=== PATIENT | male | born 1985 | race Caucasian/White ===

== ENCOUNTER 2023-03-28 07:20 | Inpatient (IN) | payer MEDICAID ==
[~2023-03-28] VITALS: Ht 185.4 cm; Wt 79.3 kg
[~2023-03-28 07:20] MED LIST: BUPR300T6 PO; CITA20TA28 PO; CLON-527 PO
[2023-03-28 08:25] LABS: BASOPHILS % (AUTO) 0.3 % (0-1); EOSINOPHILS # (AUTO) 0.1 X10'3 (0-0.9); EOSINOPHILS % (AUTO) 0.8 % (0-6); HEMATOCRIT 47.1 % (42.0-52.0); HEMOGLOBIN 16.3 g/dl (14.0-17.9); LYMPHOCYTES # (AUTO) 2.6 X10'3 (1.1-4.8); LYMPHOCYTES % (AUTO) 25.4 % (21-51); MEAN CORPUSCULAR HEMOGLOBIN 31.7 PG (27.0-31.0); MEAN CORPUSCULAR HGB CONC 34.7 g/dL (33.0-36.5); MEAN CORPUSCULAR VOLUME 91.3 FL (78-98); MEAN PLATELET VOLUME 7.1 FL (7.4-10.4); MONOCYTES # (AUTO) 0.9 X10'3 (0-0.9); MONOCYTES % (AUTO) 8.7 % (2-12); NEUTROPHILS # (AUTO) 6.6 X10'3 (1.8-7.7); NEUTROPHILS % (AUTO) 64.8 % (42-75); PLATELET COUNT 302 X10'3 (140-440); RED BLOOD COUNT 5.16 X10'6 (4.70-6.10); RED CELL DISTRIBUTION WIDTH 15.6 % (11.5-14.5); WHITE BLOOD COUNT 10.2 X10'3 (4.5-11.0)
[2023-03-28 08:29] LABS: ANION GAP 11 (8-16); BILIRUBIN,TOTAL 0.7 MG/DL (0.1-1.0); BLOOD UREA NITROGEN 16 MG/DL (7-18); CALCIUM 9.9 MG/DL (8.5-10.1); CHLORIDE 102 MMOL/L (99-107); CREATININE 0.94 MG/DL (0.60-1.10); GLUCOSE 110 MG/DL (70-104); POTASSIUM 4.1 MMOL/L (3.5-5.1); SODIUM 135 MMOL/L (135-145); TOTAL CARBON DIOXIDE 22.2 MMOL/L (24-32); eCRCL 124 ML/MIN; eGFR > 90 ML/MIN
[2023-03-28 08:30] LABS: ALANINE AMINOTRANSFERASE 76 U/L (12-78); ALBUMIN 4.4 G/DL (3.4-5.0); ALBUMIN/GLOBULIN RATIO 1.1 (1.1-1.5); ALKALINE PHOSPHATASE 84 IU/L (46-116); ASPARTATE AMINO TRANSFERASE 69 U/L (10-37); TOTAL PROTEIN 8.3 G/DL (6.4-8.2)
[2023-03-28 08:38] LABS: ETHANOL 99 MG/DL (<10); THYROID STIMULATING HORMONE 3.13 ulU/ml (0.34-4.50)
[2023-03-28 08:42] LABS: BILIRUBIN,URINE NEGATIVE (Neg); CLARITY,URINE CLEAR (Clear); COLOR,URINE YELLOW (Yellow); GLUCOSE, URINE NEGATIVE (Neg); KETONES,URINE NEGATIVE (Neg); LEUKOCYTE ESTERASE ,URINE NEGATIVE (Neg); NITRITES, URINE NEGATIVE (Neg); OCCULT BLOOD,URINE NEGATIVE (Neg); PROTEIN,URINE TRACE mg/dl (Neg); UROBILINOGEN,URINE 0.2 E.U/dL (0.2-1.0)
[2023-03-28 08:47] LABS: MUCUS STRANDS FEW /LPF (Neg); UA COLLECTION TYPE CLN CATCH MIDSTREAM
[2023-03-28 08:48] LABS: BACTERIA,URINE NONE SEEN /HPF (Neg); RBC,URINE 0-2 /HPF (0-2); SQUAMOUS EPITHELIAL CELL,UR FEW /LPF (FEW); WBC,URINE 0-4 /HPF (0-4)
[2023-03-28 09:29] LABS: URINE AMPHETAMINE SCREEN POSITIVE (Neg); URINE BARBITUATE SCREEN NEGATIVE (Neg); URINE BENZODIAZEPINES SCREEN NEGATIVE (Neg); URINE CANNABINOID SCREEN NEGATIVE (Neg); URINE COCAINE SCREEN NEGATIVE (Neg); URINE METHADONE SCREEN NEGATIVE (Neg); URINE OPIATE SCREEN NEGATIVE (Neg); URINE PHENCYCLIDINE SCREEN NEGATIVE (Neg)
--- NOTE | 2023-03-28 10:15 | NUR ---
Pt brought to [facility] from main ER and placed in bed 22. Pt is anxious and concerned about cosequenses of relapse. Pt placed in green scrubs.
--- NOTE | 2023-03-28 12:51 | NUR ---
[facility] PACKET FAXED
--- NOTE | 2023-03-28 13:10 | NUR ---
Pt is concerned if he will be able to get back on his meds. He is anxious and continues to report intrmitent SI. Overall pleasant and cooperative with questions and he desires tx at this time. Pt ate lunch well.
[2023-03-28] MEDS ORDERED: AMLO10TA13 PO (14:41)
[2023-03-28] MEDS ORDERED: PANT40TA54 PO (14:41)
[2023-03-28] MEDS ORDERED: ASEN5TAB7 PO (14:41)
[2023-03-28] MEDS ORDERED: CLON0.2T PO (14:41)
[2023-03-28] MEDS ORDERED: NICO-687 TD (14:41)
[2023-03-28] MEDS ORDERED: TRAZ-251 PO (14:41)
[2023-03-28] MEDS ORDERED: FLO0.4C PO (14:41)
[2023-03-28] MEDS ORDERED: CLON1TAB12 PO (14:41)
--- NOTE | 2023-03-28 15:41 | NUR ---
Pt's meds reviewed with him and external med rec. reviewed. Med rec. complerted and signed by MD and faxed to pharmacy. Pt was seen by [facility] and placed on 5150 hold for DTS.
[2023-03-28] MEDS: clonazePAM 1mg tablet PO PRN (16:46)
[2023-03-28] MEDS ORDERED: cloNIDine 0.1 mg tablet PO ONE (18:15)
[2023-03-28] MEDS ORDERED: amLODIPine 5mg tablet PO ONE (18:15)
[2023-03-28] MEDS ORDERED: mag hydrox/Alum hydrox/simeth 30ml oral suspension PO ONE (18:35)
[2023-03-28] MEDS ORDERED: LORazepam 1 MG tablet PO ONE (18:40)
--- NOTE | 2023-03-28 19:12 | NUR ---
The patient's BP is 178/111 and his HR is 106 and he has not had his BP medications yet today and pharmacy was made aware. The patient is very diaphoretic and having nausea with acid burning in his upper abd. Dr. Dorman made aware and orders received. He stated his anxiety is very high. He reports it was 7/10. He reports visual disturbances of seeing fog. He denies voices. He complains of upper abd pain 8/10 that was unreleaved by the Maalox. He is pale and diaphoretic.
--- NOTE | 2023-03-28 19:23 | NUR ---
Dr. Dorman made aware patient complaint of mid upper abd pain, diaphoresis and EKG ordered.
--- NOTE | 2023-03-28 20:07 | NUR ---
Dr. Dorman is at the bedside examining the patient
[2023-03-28] MEDS ORDERED: chlordiazePOXIDE 25mg capsule PO ONE (20:10)
[2023-03-28] MEDS: asenapine 5mg TAB.SUBL SL SCH (20:25)
[2023-03-28] MEDS: cloNIDine 0.1 mg tablet PO SCH (20:25)
[2023-03-28] MEDS: traZODone 50mg tablet PO SCH (20:25)
--- NOTE | 2023-03-28 20:34 | NUR ---
Labs drawn and results pending. crepe sole wire brusher on [facility] made aware of patient medical complaints.
--- NOTE | 2023-03-28 22:16 | NUR ---
The patient is resting on his bed but awake. Pending trandfer to [facility]
[2023-03-29] MEDS ORDERED: acetaminophen 325mg tablet PO PRN ×2
[2023-03-29] MEDS ORDERED: magnesium hydroxide 30ml (MOM) UD suspension PO PRN
[2023-03-29] MEDS ORDERED: mag hydrox/Alum hydrox/simeth 30ml oral suspension PO PRN
[2023-03-29] MEDS ORDERED: loperamide 2mg capsule PO PRN
[2023-03-29] MEDS ORDERED: morphine 2 MG/ML inj. syringe IM ONE ×4 (03:00→05:45)
--- NOTE | 2023-03-29 03:39 | NUR ---
Admit Note: PT arrived to [facility] from [facility] accompanied by security and [facility]. Pt is on 5150 for DTS D/T reporting that he is currently having suicidal thoughts and plans to overdose on street drugs or medication following recent relapse. Addendum: 03/29/23 at 0348 by Gladys Baer RN at 0345 Dr. Dietrich notified pts lipase results of 418. no new orders received. Pt was already given 2mg Morphine IM ordered by hospitalist for acute abdominal pain.
--- NOTE | 2023-03-29 05:55 | NUR ---
First 4mg of Morphine ordered was not administered due to pharmacist putting in new order for 4 mg Morphine
[2023-03-29 07:00] VITALS: RESP 18; O2SAT 100
--- NOTE | 2023-03-29 07:28 | NUR ---
Paged hospitalist per nursing tabulating supervisor and Dr Cloud's instructions. Pt is having severe abd pain and lipase level came back elevated at 418.
--- NOTE | 2023-03-29 07:54 | NUR ---
Obtained order from Dr Gonzales for Clear liquid diet, regular diet D/c'd.
--- NOTE | 2023-03-29 07:55 | NUR ---
Pt's BP is 159/115, his HR is 104. He is c/o of 7/10 abdominal pain.
[2023-03-29 08:00] VITALS: BP 159/115; PULSE 104; RESP 18; TEMP 98.2; O2SAT 100
[2023-03-29] MEDS ORDERED: pantoprazole 40mg Tablet.DR PO SCH (08:00)
--- NOTE | 2023-03-29 08:00 | NUR ---
Resident hospitalist called, she will come and see the patient.
[2023-03-29 08:06] LABS: HEMOGLOBIN A1C 5.4 % (4.5-6.2)
[2023-03-29 08:29] LABS: CHOL/HDL RATIO 8.7 (0.00-4.99); CHOLESTEROL 122 MG/DL (0-200); HDL CHOLESTEROL 14 MG/DL (35-60); LDL CHOLESTEROL 86 MG/DL (50-100); TRIGLYCERIDES 114 MG/DL (20-135)
[2023-03-29] MEDS ORDERED: pantoprazole 40mg IV 80 MG in normal saline 100ml IV soln 100 ML IV SCH (08:30)
[2023-03-29] MEDS: amLODIPine 5mg tablet PO SCH (08:39)
[2023-03-29] MEDS: tamsulosin 0.4mg capsule PO SCH (08:39)
[2023-03-29] MEDS: cloNIDine 0.1 mg tablet PO SCH ×3 (08:39→21:12)
[2023-03-29] MEDS: nicotine 21mg patch - 24 hr TD SCH (08:42)
[2023-03-29] MEDS: normal saline 1000ml 1,000 ML IV SCH ×2 (09:26→22:19)
[2023-03-29] MEDS: asenapine 5mg TAB.SUBL SL SCH ×2 (09:32→21:17)
[2023-03-29] MEDS: pantoprazole 40MG/NS 100ML BAG 100 ML IV SCH (09:32)
--- NOTE | 2023-03-29 10:13 | NUR ---
Resident Cooper came and saw the patient. Received new orders for pt to be NPO except for small sips with meds, NS 75 ml/Hr, Protonix 40 mg IV. IV started left AC. MD instructed to notify her if pt still having severe abd pain after IV Protonix. IV Protonix administered and pt is still c/o nausea and severe 8/10 mid upper abdominal pain as well as right upper back pain.
--- NOTE | 2023-03-29 10:16 | NUR ---
Notified resident MD Osborne that pt is still experiencing nausea and severe mid upper abdominal pain as well as right upper back pain. Order obtained for abdominal CT without contrast.
--- NOTE | 2023-03-29 10:41 | NUR ---
Pt taken via w/c to CT accompanied by CRN and security.
--- NOTE | 2023-03-29 11:00 | NUR ---
Pt back from CT.
[2023-03-29] MEDS ORDERED: haloperidol 5mg tablet PO PRN (12:20)
[2023-03-29] MEDS ORDERED: dextrose 50%-water 50ml dispensing syringe IV PRN (12:20)
[2023-03-29] MEDS ORDERED: haloperidol lactate 5mg/ml inj IM PRN (12:20)
[2023-03-29] MEDS ORDERED: LORazepam 2 mg/ml vial IV PRN (12:20)
[2023-03-29 13:07] VITALS: BP 152/110; PULSE 103; RESP 18; O2SAT 100
--- NOTE | 2023-03-29 13:13 | NUR ---
Pt c/o severe anxiety, scored a 20 on CIWA scale. Administered PRN Ativan 2 mg IV. Addendum: 03/29/23 at 1722 by Perla Gutierrez RN (Lee) Pt NPO and nauseous, so gave IV instead of PO Ativan.
[2023-03-29] MEDS: thiamine 100mg/ml 2ml inj. IV SCH ×2 (13:25→21:20)
--- NOTE | 2023-03-29 13:38 | NUR ---
Second page sent to hospitalist requesting PRN IV pain med. Pt NPO with mod-severe acute pancreatitis, c/o 8/10 upper mid abd pain and right upper back pain.
--- NOTE | 2023-03-29 14:58 | NUR ---
Hospitalist called while this nurse was on lunch in response to page. New order for [place] 5/325 mg PO Q6H PRN pain.
--- NOTE | 2023-03-29 15:10 | NUR ---
Resident [place] called the unit. She states that she will put in orders for morphine and [place] protocol later. Obtained order for Zofran 4 mg IV daily PRN N/V.
[2023-03-29] MEDS: HYDROcodone/acetaminophen 5mg/325mg tablet PO PRN (15:45)
[2023-03-29] MEDS: ondansetron/PF 4mg/2ml inj IV PRN (15:48)
[2023-03-29 17:10] VITALS: BP 157/101; PULSE 104; RESP 18; O2SAT 98
[2023-03-29] MEDS: LORazepam 1 MG tablet PO PRN (17:23)
--- NOTE | 2023-03-29 17:33 | NUR ---
NURSING PROGRESS NOTE: Problem : Pt is on 5150 for DTS D/T reporting that he is currently having suicidal thoughts and plans to overdose on street drugs or medication following recent relapse. Pt was residing at the [facility] until relapse. Pt reports drinking 1 pint of 100 proof alcohol X 3 days. Pt's tox screen was + for methamphetamines. Pt has acute mod-severe pancreatitis. Pt has a Hx of alcohol withdrawal seizures. Interventions : 1:1 assessment, establishment of rapport, therapeutic conversation, active listening, ensured contract for safety, IV started, IV fluids started, CIWA monitoring, pain and nausea management, IV medications for acute pancreatitis and ETOH withdrawal administered, Q15 min safety checks. Response : See previous nursing notes for today. Pt made NPO, given IV protonix with no effect, abdominal CT done showed acute mod-severe pancreatitis. IV fluids running, NS @ 75 ml/hr. Pt started on IV thiamine, IV folic acid to start tomorrow then meds will be changed to PO on 04/01/23. Orders to monitor pt's FS BG AC/HS, PRN IV Dextrose ordered for BG < 60. Pt has both IV and PO PRN Ativan for anxiety/agitation, offer PO if tolerated. Pt scored a CIWA score of 20 accompanied by nausea, sweating, and severe anxiety so was given Ativan 2 mg IV at 1313 with good effect, dropping his CIWA score to 6 within an hour. His CIWA was 13 at 1723 with severe anxiety, moderate restlessness. He was given PRN Ativan 2 mg PO. FS BG AC lunch was 128, FS BG AC dinner was 107. Pt was given PRN [place] 5/325 mg at 1545 for c/o 8/10 mid upper abdominal pain with some effect. PRN IV Zofran 4 mg order obtained for once daily given at 1548 for nausea. Resident MD reported she would put in orders for Morphine and [place] protocol but thus far it has not been entered. Pt showered early afternoon. Pt admits to depression though is currently denying SI/HI/AH/VH. Pt did have some brief visual disturbances in the intelligence analyst, he reported seeing swirling colors against the wall though currently not having visual disturbances. Order for seizure precautions, charge machine operator notified, currently no mental health medical beds available, his bed currently has not side rails so unable to pad them, however; bed is low to the ground. No staff available this shift for LOS, hospitalist staff not interested in transferring pt to a medical unit. Pt to be medically managed on the mental health unit for acute pancreatitis and ETOH withdrawal. Although pt is NPO, he may take PO meds with small sips of water if able to tolerate. Plan : Pt is in need of crisis interruption and stabilization with medication adjustment and management. He needs treatment for acute mod-severe pancreatitis and monitored for s/sx ETOH withdrawal. Addendum: 03/29/23 at 1808 by Perla Gutierrez RN (Lee) Pt has orders for am labs: CBC/Diff, CMP, Lipase, mag, phos.
[2023-03-29 19:30] VITALS: BP 137/106; PULSE 109; RESP 16; TEMP 97.9; O2SAT 98
[2023-03-29] MEDS: traZODone 50mg tablet PO SCH (21:14)
[2023-03-29] MEDS: clonazePAM 1mg tablet PO PRN (21:14)
[2023-03-29] MEDS: morphine 2 MG/ML inj. syringe IV PRN (21:56)
[2023-03-30] MEDS: LORazepam 1 MG tablet PO PRN (04:13)
[2023-03-30] MEDS: HYDROcodone/acetaminophen 5mg/325mg tablet PO PRN ×3 (04:13→20:57)
--- NOTE | 2023-03-30 04:51 | NUR ---
NURSING PROGRESS NOTE: Problem : Pt is on 5150 for DTS D/T reporting that he is currently having suicidal thoughts and plans to overdose on street drugs or medication following recent relapse. Pt was residing at the [facility] until relapse. Pt reports drinking 1 pint of 100 proof alcohol X 3 days. Pt's tox screen was + for methamphetamines. Pt has acute mod-severe pancreatitis. Pt has a Hx of alcohol withdrawal seizures. Interventions : 1:1 assessment, establishment of rapport, therapeutic conversation, active listening, ensured contract for safety, IV started, IV fluids started, CIWA monitoring, pain and nausea management, IV medications for acute pancreatitis and ETOH withdrawal administered, Q15 min safety checks. Response : Pt was lying in bed at start of shift and received shower a shower shortly after. His BS at 2100 was 98. Pt looks much better than last night. Not diaphoretic or visibly anxious like last night and his pain seems to be better managed. He did receive his 2mg of Morphine at bedtime for abdominal pain that worked well for him. MARYBETH Dietrich was called regarding pt being NPO and having oral medication and no new orders were received. Pt denies AVH/SI/HI at this time and agrees he feels much better and comfortable than he was last night. He was agreeable to all care and treatment and was compliant with all meds. Pt would also like to get his Klonopin three times a day as he was unsure why he was not receiving it and was educated that it is in as a PRN. Pt slept well. Pts IV infiltrated and a new one was started on his right hand, 20 gauge. Left AC 22G was DCd. Pt then expressed anxiety and abdominal pain so Ativan and [place] were given with desired results and pt was back asleep for the night. Plan : Pt is in need of crisis interruption and stabilization with medication adjustment and management. He needs treatment for acute mod-severe pancreatitis and monitored for s/sx ETOH withdrawal.
[2023-03-30 08:00] VITALS: BP 146/105; PULSE 109; RESP 16; TEMP 97.7; O2SAT 98
[2023-03-30 08:09] LABS: BASOPHILS % (AUTO) 0.1 % (0-1); EOSINOPHILS # (AUTO) 0.2 X10'3 (0-0.9); HEMATOCRIT 42.6 % (42.0-52.0); HEMOGLOBIN 14.8 g/dl (14.0-17.9); LYMPHOCYTES # (AUTO) 1.5 X10'3 (1.1-4.8); LYMPHOCYTES % (AUTO) 15.7 % (21-51); MEAN CORPUSCULAR HEMOGLOBIN 31.9 PG (27.0-31.0); MEAN CORPUSCULAR HGB CONC 34.6 g/dL (33.0-36.5); MEAN CORPUSCULAR VOLUME 92.1 FL (78-98); MEAN PLATELET VOLUME 7.6 FL (7.4-10.4); MONOCYTES # (AUTO) 0.7 X10'3 (0-0.9); MONOCYTES % (AUTO) 7.3 % (2-12); NEUTROPHILS # (AUTO) 7.3 X10'3 (1.8-7.7); NEUTROPHILS % (AUTO) 74.9 % (42-75); PLATELET COUNT 220 X10'3 (140-440); RED BLOOD COUNT 4.63 X10'6 (4.70-6.10); RED CELL DISTRIBUTION WIDTH 15.2 % (11.5-14.5); WHITE BLOOD COUNT 9.7 X10'3 (4.5-11.0)
[2023-03-30 08:19] LABS: ANION GAP 8 (8-16); BLOOD UREA NITROGEN 14 MG/DL (7-18); BUN/CREATININE RATIO 16.3 (10.0-20.0); CHLORIDE 101 MMOL/L (99-107); CREATININE 0.86 MG/DL (0.60-1.10); GLUCOSE 92 MG/DL (70-104); POTASSIUM 3.8 MMOL/L (3.5-5.1); SODIUM 133 MMOL/L (135-145); TOTAL CARBON DIOXIDE 24.1 MMOL/L (24-32)
[2023-03-30 08:20] LABS: ALANINE AMINOTRANSFERASE 51 U/L (12-78); ALBUMIN 3.9 G/DL (3.4-5.0); ALBUMIN/GLOBULIN RATIO 1.1 (1.1-1.5); ALKALINE PHOSPHATASE 94 IU/L (46-116); ASPARTATE AMINO TRANSFERASE 41 U/L (10-37); BILIRUBIN,TOTAL 1.1 MG/DL (0.1-1.0); CALCIUM 9.4 MG/DL (8.5-10.1); PHOSPHORUS 3.6 MG/DL (2.3-4.5); TOTAL PROTEIN 7.5 G/DL (6.4-8.2); eCRCL 135 ML/MIN; eGFR > 90 ML/MIN
[2023-03-30] MEDS: asenapine 5mg TAB.SUBL SL SCH ×2 (08:54→20:59)
[2023-03-30] MEDS: tamsulosin 0.4mg capsule PO SCH (08:55)
[2023-03-30] MEDS: cloNIDine 0.1 mg tablet PO SCH ×3 (08:55→20:54)
[2023-03-30] MEDS: amLODIPine 5mg tablet PO SCH (08:55)
[2023-03-30] MEDS: folic acid 1mg/0.2ml inj IV SCH (08:59)
[2023-03-30] MEDS: thiamine 100mg/ml 2ml inj. IV SCH ×3 (08:59→20:59)
[2023-03-30] MEDS: nicotine 21mg patch - 24 hr TD SCH (09:08)
[2023-03-30 09:09] LABS: LIPASE 503 U/L (16-77)
[2023-03-30] MEDS: pantoprazole 40MG/NS 100ML BAG 100 ML IV SCH (09:12)
[2023-03-30] MEDS: clonazePAM 1mg tablet PO PRN ×2 (09:36→17:18)
[2023-03-30] MEDS: normal saline 1000ml 1,000 ML IV SCH (11:20)
--- NOTE | 2023-03-30 11:57 | NUR ---
PSYCHOSOCIAL ASSESSMENT Pt is a 37-year-old male who was placed on a hold after experiencing suicidal thoughts, feels hopeless, helpless, and plans to overdose on street drugs or medications, following recent relapse. His toxicology report at [facility] was positive for Amphetamines and Alcohol. He has a history with NA. Client is homeless. He was recently staying at [facility] but relapsed while there. He will not be considered for readmission at this time, due to client having multiple bottles of alcohol, narcan, and "random pills" in his room. He had been sober for 2 months prior. Client is reportedly connected to [employer], ; it was reported that [employer] may have housing lined up for this client. Spoke with a CM at [facility] [employer] who would like to see him next week for to get things going with them for more permanent housing. They do not have emergency housing options and recommended [facility]. This Kitchen Helper spoke with Jamila at [facility] who confirmed Pt. is in their MAT Program, he sees a Psychiatrist there and a therapist there. MSE: Pt was laying in his bed in his room when this Kitchen Helper went to talk to him. He was open to chatting with me. His demeanor was calm and compliant. He was alert and oriented. He reported he is feeling very upset with himself and depressed that he relapsed. His mood was depressive with a restricted affect. His thought content and thought process were WNL. Mai Watts LCSW
[2023-03-30] MEDS: morphine 2 MG/ML inj. syringe IV PRN (12:28)
--- NOTE | 2023-03-30 16:58 | NUR ---
Nursing Progress Note: Problem: Admit Note: Pt is on 5150 for DTS D/T reporting that he is currently having suicidal thoughts and plans to overdose on street drugs or medication following recent relapse. Pt was residing at the [facility] until relapse. Pt reports drinking 1 pint of 100 proof alcohol X 3 days. Pt's tox screen was + for methamphetamines. Pt has acute mod-severe pancreatitis. Pt has a Hx of alcohol withdrawal seizures. Interventions: Maintained a safe and structured environment, ensured contract for safety, administered meds as prescribed, provided clear and simple instructions, attempted to orient to reality, and maintained Q 15min safety checks. Response: Pt. was up for vitals, was NPO at breakfast and lunch. Spoke with him later in the day at bedside with another nurse while administering IV meds, asked what brought him here. He had stated that he relapsed. Asked what his plan was for discharge he said, I am brandt that the program said I can go back after this is done, right now I am ok here. He cont. to have some ABD pain, PRNs for pain have been administered. The MD came in to see him and orders were given to DC the IV fluids, start a clear liquid diet and advance as tolerated. He cont. to present as somewhat irritable at times, but still polite and cooperative. No noted bx issues. Took meds without complications. -Appearance: casually groomed -Eye contact: good -Mood: depressed -Affect: congruent with mood -Speech: WNL -Thought Process: intact -Thought content: goal oriented to get back to his program -A/V/H: denies -SI/HI: denies -ADLs: independent -Insight: fair -Judgement: poor Plan: Cont. to require a safe and structured environment for further stabilization. Due to current symptoms, and stating he is not ready, if discharged at this time he could be a risk for safety and re-hospitalization.
[2023-03-30 19:00] VITALS: BP 159/104; PULSE 99; RESP 18; TEMP 98.2; O2SAT 100
[2023-03-30] MEDS: ondansetron/PF 4mg/2ml inj IV PRN (19:23)
[2023-03-30 19:30] VITALS: BP 159/104; PULSE 99; RESP 18; TEMP 98.2; O2SAT 100
[2023-03-30] MEDS: traZODone 50mg tablet PO SCH (20:54)
[2023-03-31] MEDS: morphine 2 MG/ML inj. syringe IV PRN ×3 (00:45→16:51)
--- NOTE | 2023-03-31 05:18 | NUR ---
NURSING PROGRESS NOTE: Problem : Pt is on 5150 for DTS D/T reporting that he is currently having suicidal thoughts and plans to overdose on street drugs or medication following recent relapse. Pt was residing at the [facility] until relapse. Pt reports drinking 1 pint of 100 proof alcohol X 3 days. Pt's tox screen was + for methamphetamines. Pt has acute mod-severe pancreatitis. Pt has a Hx of alcohol withdrawal seizures. Interventions : 1:1 assessment, establishment of rapport, therapeutic conversation, active listening, ensured contract for safety, IV started, IV fluids started, CIWA monitoring, pain and nausea management, IV medications for acute pancreatitis and ETOH withdrawal administered, Q15 min safety checks. Response : Pt was lying in bed at start of shift and received shower a shower shortly after. Pt complained of a 10/10 pain in his abdomen after he ate his dinner of clear liquids. He was given Tylenol for pain because his [place] was not due yet and Zofran. The Zofran worked and Tylenol helped minimally. Pt was compliant with all meds and denies AVH/SI/HI. Pt slept well but got 2 mg of morphine for 10/10 abdominal pain around 0100. Pts CIWA scores are consistently under 8. Pt appropriate and cooperated. Pt requesting more meds in the middle of the night and being vague about his needs, whether he needs something for sleep, or pain. Pt then asked for more morphine just two hours after the last morphine administration. No meds were given, pt went back to sleep. Plan : Pt is in need of crisis interruption and stabilization with medication adjustment and management. He needs treatment for acute mod-severe pancreatitis and monitored for s/sx ETOH withdrawal.
[2023-03-31] MEDS: amLODIPine 5mg tablet PO SCH (07:26)
[2023-03-31] MEDS: cloNIDine 0.1 mg tablet PO SCH ×3 (07:26→20:27)
[2023-03-31] MEDS: tamsulosin 0.4mg capsule PO SCH (07:26)
[2023-03-31] MEDS: nicotine 21mg patch - 24 hr TD SCH (07:27)
[2023-03-31] MEDS: asenapine 5mg TAB.SUBL SL SCH ×2 (07:28→20:27)
[2023-03-31 08:00] VITALS: BP 149/109; PULSE 90; RESP 14; TEMP 97.8; O2SAT 100
[2023-03-31] MEDS: thiamine 100mg/ml 2ml inj. IV SCH ×3 (09:13→20:27)
[2023-03-31] MEDS: pantoprazole 40MG/NS 100ML BAG 100 ML IV SCH (09:14)
[2023-03-31] MEDS: folic acid 1mg/0.2ml inj IV SCH (09:14)
[2023-03-31] MEDS: clonazePAM 1mg tablet PO PRN (09:16)
[2023-03-31] MEDS: HYDROcodone/acetaminophen 5mg/325mg tablet PO PRN ×2 (09:24→17:30)
[2023-03-31 10:15] LABS: BASOPHILS # (AUTO) 0.1 X10'3 (0-0.2); BASOPHILS % (AUTO) 1.9 % (0-1); EOSINOPHILS # (AUTO) 0.2 X10'3 (0-0.9); EOSINOPHILS % (AUTO) 3.1 % (0-6); HEMATOCRIT 37.6 % (42.0-52.0); HEMOGLOBIN 12.9 g/dl (14.0-17.9); LYMPHOCYTES # (AUTO) 0.9 X10'3 (1.1-4.8); LYMPHOCYTES % (AUTO) 12.4 % (21-51); MEAN CORPUSCULAR HEMOGLOBIN 31.6 PG (27.0-31.0); MEAN CORPUSCULAR HGB CONC 34.4 g/dL (33.0-36.5); MEAN PLATELET VOLUME 7.5 FL (7.4-10.4); MONOCYTES # (AUTO) 0.4 X10'3 (0-0.9); MONOCYTES % (AUTO) 5.2 % (2-12); NEUTROPHILS # (AUTO) 5.4 X10'3 (1.8-7.7); NEUTROPHILS % (AUTO) 77.4 % (42-75); PLATELET COUNT 196 X10'3 (140-440); RED BLOOD COUNT 4.09 X10'6 (4.70-6.10); RED CELL DISTRIBUTION WIDTH 14.6 % (11.5-14.5)
[2023-03-31 10:30] LABS: ALANINE AMINOTRANSFERASE 43 U/L (12-78); ALBUMIN 3.7 G/DL (3.4-5.0); ALBUMIN/GLOBULIN RATIO 1.1 (1.1-1.5); ALKALINE PHOSPHATASE 80 IU/L (46-116); ANION GAP 9 (8-16); ASPARTATE AMINO TRANSFERASE 34 U/L (10-37); BILIRUBIN,TOTAL 0.8 MG/DL (0.1-1.0); BLOOD UREA NITROGEN 12 MG/DL (7-18); CHLORIDE 100 MMOL/L (99-107); GLUCOSE 129 MG/DL (70-104); PHOSPHORUS 4.3 MG/DL (2.3-4.5); POTASSIUM 3.6 MMOL/L (3.5-5.1); SODIUM 134 MMOL/L (135-145); TOTAL CARBON DIOXIDE 24.9 MMOL/L (24-32); TOTAL PROTEIN 7.1 G/DL (6.4-8.2); eCRCL 146 ML/MIN; eGFR > 90 ML/MIN
[2023-03-31 10:43] LABS: LIPASE 159 U/L (16-77)
[2023-03-31 13:00] VITALS: BP 149/104; PULSE 88; RESP 16; O2SAT 99
--- NOTE | 2023-03-31 17:35 | NUR ---
Nursing Progress Note: Problem: Admit Note: Pt is on 5150 for DTS D/T reporting that he is currently having suicidal thoughts and plans to overdose on street drugs or medication following recent relapse. Pt was residing at the [facility] until relapse. Pt reports drinking 1 pint of 100 proof alcohol X 3 days. Pt's tox screen was + for methamphetamines. Pt has acute mod-severe pancreatitis. Pt has a Hx of alcohol withdrawal seizures. Interventions: Maintained a safe and structured environment, ensured contract for safety, administered meds as prescribed, provided clear and simple instructions, attempted to orient to reality, and maintained Q 15min safety checks. Response: Pt. was up for vitals. Pt on clear liquid diet. Pt has abdominal pain throughout the day requiring morphine and [place] prn. Pt states he gets pancreatitis now when having only a little alcohol. Pt has very low CIWA scores. CIWA discontinued. Pt pleasant and cooperative with each interaction. -Appearance: casually groomed -Eye contact: good -Mood: depressed -Affect: congruent with mood -Speech: WNL -Thought Process: intact -Thought content: goal oriented to get back to his program -A/V/H: denies -SI/HI: denies -ADLs: independent -Insight: fair -Judgement: poor Plan: Cont. to require a safe and structured environment for further stabilization. Due to current symptoms, and stating he is not ready, if discharged at this time he could be a risk for safety and re-hospitalization.
[2023-03-31 19:00] VITALS: RESP 18; O2SAT 99
[2023-03-31 20:00] VITALS: BP 140/91; PULSE 99; RESP 14; TEMP 97.4; O2SAT 100
[2023-03-31] MEDS: traZODone 50mg tablet PO SCH (20:27)
--- NOTE | 2023-03-31 21:59 | NUR ---
Nursing Progress Note: Problem: Admit Note: Pt is on 5150 for DTS D/T reporting that he is currently having suicidal thoughts and plans to overdose on street drugs or medication following recent relapse. Pt was residing at the [facility] until relapse. Pt reports drinking 1 pint of 100 proof alcohol X 3 days. Pt's tox screen was + for methamphetamines. Pt has acute mod-severe pancreatitis. Pt has a Hx of alcohol withdrawal seizures. Interventions: Maintained a safe and structured environment, ensured contract for safety, administered meds as prescribed, provided clear and simple instructions, attempted to orient to reality, and maintained Q 15min safety checks. Response: Patient resides in his room prior to shift change. The patient is well oriented. Patient denies S/I, H/I, or any hallucinations. Patient states his chronic ABD pain is under control and he looks forward to more of his schedules/PRN pain medications as available. The patient speaks in a regular rate and tone. He makes direct eye contact. Patients saline lock is flushed and patent. Patient ate a full meal. He showered and complied with all medications. Plan: Cont. to require a safe and structured environment for further stabilization. Addendum: 04/01/23 at 0040 by Marques Giron RN Patient is awake, some anxiety, generalized ABD pain present. PRN Klonopin given along with PRN [place].
[2023-04-01] MEDS: HYDROcodone/acetaminophen 5mg/325mg tablet PO PRN ×3 (00:16→15:23)
[2023-04-01] MEDS: clonazePAM 1mg tablet PO PRN ×2 (00:17→14:10)
[2023-04-01] MEDS: morphine 2 MG/ML inj. syringe IV PRN ×2 (04:29→12:18)
[2023-04-01 07:00] VITALS: RESP 16; O2SAT 99
[2023-04-01] MEDS: cloNIDine 0.1 mg tablet PO SCH ×3 (07:26→20:17)
[2023-04-01] MEDS: asenapine 5mg TAB.SUBL SL SCH ×2 (07:26→20:17)
[2023-04-01] MEDS: pantoprazole 40mg Tablet.DR PO SCH (07:28)
[2023-04-01] MEDS: amLODIPine 5mg tablet PO SCH (07:28)
[2023-04-01] MEDS: nicotine 21mg patch - 24 hr TD SCH (07:28)
[2023-04-01] MEDS: tamsulosin 0.4mg capsule PO SCH (07:28)
[2023-04-01 08:00] VITALS: BP 150/96; PULSE 100; RESP 16; TEMP 98.2; O2SAT 99
[2023-04-01 08:04] LABS: BASOPHILS % (AUTO) 0.5 % (0-1); EOSINOPHILS # (AUTO) 0.2 X10'3 (0-0.9); EOSINOPHILS % (AUTO) 3.9 % (0-6); HEMATOCRIT 39.5 % (42.0-52.0); HEMOGLOBIN 13.5 g/dl (14.0-17.9); LYMPHOCYTES # (AUTO) 1.4 X10'3 (1.1-4.8); LYMPHOCYTES % (AUTO) 23.3 % (21-51); MEAN CORPUSCULAR HEMOGLOBIN 31.5 PG (27.0-31.0); MEAN CORPUSCULAR HGB CONC 34.1 g/dL (33.0-36.5); MEAN CORPUSCULAR VOLUME 92.2 FL (78-98); MEAN PLATELET VOLUME 7.4 FL (7.4-10.4); MONOCYTES # (AUTO) 0.4 X10'3 (0-0.9); MONOCYTES % (AUTO) 7.1 % (2-12); NEUTROPHILS # (AUTO) 3.9 X10'3 (1.8-7.7); NEUTROPHILS % (AUTO) 65.2 % (42-75); PLATELET COUNT 227 X10'3 (140-440); RED BLOOD COUNT 4.28 X10'6 (4.70-6.10); RED CELL DISTRIBUTION WIDTH 14.5 % (11.5-14.5)
[2023-04-01 08:23] LABS: ALANINE AMINOTRANSFERASE 40 U/L (12-78); ALBUMIN 3.9 G/DL (3.4-5.0); ALBUMIN/GLOBULIN RATIO 1.1 (1.1-1.5); ALKALINE PHOSPHATASE 79 IU/L (46-116); ANION GAP 5 (8-16); ASPARTATE AMINO TRANSFERASE 27 U/L (10-37); BILIRUBIN,TOTAL 0.7 MG/DL (0.1-1.0); BLOOD UREA NITROGEN 10 MG/DL (7-18); BUN/CREATININE RATIO 11.9 (10.0-20.0); CALCIUM 9.6 MG/DL (8.5-10.1); CHLORIDE 102 MMOL/L (99-107); CREATININE 0.84 MG/DL (0.60-1.10); GLUCOSE 110 MG/DL (70-104); PHOSPHORUS 3.3 MG/DL (2.3-4.5); POTASSIUM 4.2 MMOL/L (3.5-5.1); SODIUM 135 MMOL/L (135-145); TOTAL CARBON DIOXIDE 27.9 MMOL/L (24-32); TOTAL PROTEIN 7.6 G/DL (6.4-8.2); eCRCL 139 ML/MIN; eGFR > 90 ML/MIN
[2023-04-01 08:38] LABS: LIPASE 164 U/L (16-77)
[2023-04-01] MEDS: folic acid 1mg/0.2ml inj IV SCH (08:43)
[2023-04-01] MEDS: thiamine 100mg/ml 2ml inj. IV SCH (08:43)
--- NOTE | 2023-04-01 17:09 | NUR ---
Nursing Progress Note: Haresh Problem: Admit Note: Pt is on 5150 for DTS D/T reporting that he is currently having suicidal thoughts and plans to overdose on street drugs or medication following recent relapse. Pt was residing at the [facility] until relapse. Pt reports drinking 1 pint of 100 proof alcohol X 3 days. Pt's tox screen was + for methamphetamines. Pt has acute mod-severe pancreatitis. Pt has a Hx of alcohol withdrawal seizures. Interventions: Maintained a safe and structured environment, ensured contract for safety, administered meds as prescribed, provided clear and simple instructions, attempted to orient to reality, and maintained Q 15min safety checks. Response: Received pt asleep. Pt took medications cooperatively and ate meals in the community room. Given PRN [place] with morning medications. Pt slept after breakfast until lunchtime. Pt advanced diet at lunch to a regular diet, pt tolerated well. Pt showered today. discontinued all IV medications and IV today. Performed 1:1 bedside. Pt denies SI/HI and AVH. Pt calm and cooperative with staff. Pt requested PRN Klonopin for anxiety, given with good effect. Plan: Cont. to require a safe and structured environment for further stabilization. Due to current symptoms, and stating he is not ready, if discharged at this time he could be a risk for safety and re-hospitalization.
[2023-04-01 19:00] VITALS: RESP 18; O2SAT 99
[2023-04-01 20:00] VITALS: BP 142/97; PULSE 98; RESP 18; TEMP 97.2; O2SAT 99
[2023-04-01] MEDS: traZODone 50mg tablet PO SCH (20:17)
[2023-04-02] MEDS: HYDROcodone/acetaminophen 5mg/325mg tablet PO PRN ×4 (01:54→21:25)
--- NOTE | 2023-04-02 02:01 | NUR ---
Nursing Progress Note: Haresh Problem: Admit Note: Pt is on 5150 for DTS D/T reporting that he is currently having suicidal thoughts and plans to overdose on street drugs or medication following recent relapse. Pt was residing at the [facility] until relapse. Pt reports drinking 1 pint of 100 proof alcohol X 3 days. Pt's tox screen was + for methamphetamines. Pt has acute mod-severe pancreatitis. Pt has a Hx of alcohol withdrawal seizures. Interventions: Maintained a safe and structured environment, ensured contract for safety, administered meds as prescribed, provided clear and simple instructions, attempted to orient to reality, and maintained Q 15min safety checks. Response: Pt. received in room at change of shift. Pt. came out to make a phone call and returned back to room. He is calm and cooperative. Participated in evening snack. Pt. is medication compliant. Pt. denies SI/HI/AH/VH . He reports his depression is still up and down but the medication has been helping. Pt. showered before bed. Pt. awaken at 0145 c/o of 8/10 abdominal pain and requested PRN [place] and it was provided to pt. He returned to room. Observed and appears sleeping without difficulty. Plan: Cont. to require a safe and structured environment for further stabilization. Due to current symptoms, and stating he is not ready, if discharged at this time he could be a risk for safety and re-hospitalization.
[2023-04-02 07:00] VITALS: RESP 19; O2SAT 99
[2023-04-02 07:04] LABS: ALANINE AMINOTRANSFERASE 36 U/L (12-78); ALBUMIN 3.7 G/DL (3.4-5.0); ALKALINE PHOSPHATASE 73 IU/L (46-116); ANION GAP 4 (8-16); ASPARTATE AMINO TRANSFERASE 20 U/L (10-37); BILIRUBIN,TOTAL 0.5 MG/DL (0.1-1.0); BLOOD UREA NITROGEN 13 MG/DL (7-18); BUN/CREATININE RATIO 14.8 (10.0-20.0); CALCIUM 9.5 MG/DL (8.5-10.1); CHLORIDE 104 MMOL/L (99-107); CREATININE 0.88 MG/DL (0.60-1.10); GLUCOSE 103 MG/DL (70-104); MAGNESIUM 2.1 MG/DL (1.5-2.4); PHOSPHORUS 3.7 MG/DL (2.3-4.5); POTASSIUM 4.3 MMOL/L (3.5-5.1); SODIUM 135 MMOL/L (135-145); TOTAL CARBON DIOXIDE 26.7 MMOL/L (24-32); TOTAL PROTEIN 7.4 G/DL (6.4-8.2); eCRCL 132 ML/MIN; eGFR > 90 ML/MIN
[2023-04-02 07:05] LABS: BASOPHILS % (AUTO) 0.5 % (0-1); EOSINOPHILS # (AUTO) 0.2 X10'3 (0-0.9); EOSINOPHILS % (AUTO) 5.1 % (0-6); HEMATOCRIT 37.4 % (42.0-52.0); HEMOGLOBIN 12.9 g/dl (14.0-17.9); LYMPHOCYTES # (AUTO) 1.6 X10'3 (1.1-4.8); LYMPHOCYTES % (AUTO) 33.9 % (21-51); MEAN CORPUSCULAR HEMOGLOBIN 31.8 PG (27.0-31.0); MEAN CORPUSCULAR HGB CONC 34.5 g/dL (33.0-36.5); MEAN CORPUSCULAR VOLUME 92.4 FL (78-98); MEAN PLATELET VOLUME 7.3 FL (7.4-10.4); MONOCYTES # (AUTO) 0.4 X10'3 (0-0.9); MONOCYTES % (AUTO) 8.1 % (2-12); NEUTROPHILS # (AUTO) 2.5 X10'3 (1.8-7.7); NEUTROPHILS % (AUTO) 52.4 % (42-75); PLATELET COUNT 230 X10'3 (140-440); RED BLOOD COUNT 4.04 X10'6 (4.70-6.10); RED CELL DISTRIBUTION WIDTH 14.8 % (11.5-14.5); WHITE BLOOD COUNT 4.8 X10'3 (4.5-11.0)
[2023-04-02 07:55] LABS: LIPASE 131 U/L (16-77)
[2023-04-02 08:00] VITALS: BP 143/104; PULSE 87; RESP 19; TEMP 97.6; O2SAT 99
[2023-04-02] MEDS: amLODIPine 5mg tablet PO SCH (08:19)
[2023-04-02] MEDS: nicotine 21mg patch - 24 hr TD SCH (08:21)
[2023-04-02] MEDS: thiamine 100mg tablet PO SCH (08:22)
[2023-04-02] MEDS: asenapine 5mg TAB.SUBL SL SCH ×2 (08:22→21:07)
[2023-04-02] MEDS: cloNIDine 0.1 mg tablet PO SCH ×3 (08:22→21:06)
[2023-04-02] MEDS: multivitamins, therapeutics tablet PO SCH (08:22)
[2023-04-02] MEDS: folic acid 1mg tablet PO SCH (08:22)
[2023-04-02] MEDS: tamsulosin 0.4mg capsule PO SCH (08:22)
[2023-04-02] MEDS: pantoprazole 40mg Tablet.DR PO SCH (08:22)
[2023-04-02] MEDS: clonazePAM 1mg tablet PO PRN ×3 (08:49→22:24)
--- NOTE | 2023-04-02 09:08 | NUR ---
Initial: Pt admit DX acute pancreatitis, SI, and etoh abuse per EMR. Pt NPO first two days of admit advanced to clears 03/30-04/01 WL ~75% intake now advanced to regular diet 04/01 WS PO 100% first two solid meals w/ snacks per EMR. Overall, not meeting estimated needs given prior liquids diet though if current solid PO persists will meet needs. Receiving routine thiamine, folic acid, and MVI for etoh hx. LBM 04/01 per EMR. Will monitor for further nutrition intervention needs this admit. Rec: 1. continue regular diet; if abdominal discomfort w/ PO consider low-fat diet 2. monitor PO trends for ONS needs 3. routine thiamine, folic acid, MVI for etoh hx 4. bowel care per rx 5. weekly wt Addendum: 04/02/23 at [address] Amended: Links added.
--- NOTE | 2023-04-02 17:30 | NUR ---
Nursing Progress Note: Haresh Problem: Admit Note: Pt is on 5150 for DTS D/T reporting that he is currently having suicidal thoughts and plans to overdose on street drugs or medication following recent relapse. Pt was residing at the [facility] until relapse. Pt reports drinking 1 pint of 100 proof alcohol X 3 days. Pt's tox screen was + for methamphetamines. Pt has acute mod-severe pancreatitis. Pt has Hx of alcohol withdrawal seizures. Interventions: Maintained a safe and structured environment, ensured contract for safety, administered meds as prescribed, provided clear and simple instructions, attempted to orient to reality, and maintained Q 15min safety checks. Response: Received Pt in bed sleeping w/o distress at the beginning of this shift. Pt woke and was cooperative with vitals. Pt was up to the community room for breakfast and took AM meds w/o issue. After breakfast he received [place] and Klonopin PRN with good effect on both pain and anxiety. Pt was pleasant and friendly in conversation, reporting better pain management and sleep. Pt was in bright mood and napped in late morning. He received Prn [place] and Klonopin in afternoon as well with good effect. Pt not experiencing break through pain. Pt reminisced about some of his old vehicles and working on them while laughing and smiling. Pt reports a lessening of SI and wants to re-engage with [facility] [place]. Plan: Cont. to require a safe and structured environment for further stabilization. Due to current symptoms, and stating he is not ready, if discharged at this time he could be a risk for safety and re-hospitalization.
[2023-04-02 19:00] VITALS: RESP 18; O2SAT 99
[2023-04-02 20:00] VITALS: BP 139/87; PULSE 82; RESP 18; TEMP 97.1; O2SAT 99
[2023-04-02] MEDS: traZODone 50mg tablet PO SCH (21:06)
--- NOTE | 2023-04-03 02:13 | NUR ---
Nursing Progress Note: Haresh Problem: Admit Note: Pt is on 5150 for DTS D/T reporting that he is currently having suicidal thoughts and plans to overdose on street drugs or medication following recent relapse. Pt was residing at the [facility] until relapse. Pt reports drinking 1 pint of 100 proof alcohol X 3 days. Pt's tox screen was + for methamphetamines. Pt has acute mod-severe pancreatitis. Pt has Hx of alcohol withdrawal seizures. Interventions: Maintained a safe and structured environment, ensured contract for safety, administered meds as prescribed, provided clear and simple instructions, attempted to orient to reality, and maintained Q 15min safety checks. Response: Pt received in room. He was lying down quietly. He requests to shower at beginning of shift. Pt reports his last drink was 5 days ago. He has no anxiety during interview, no diaphoresis, no tremors, and no nausea. Pt reports he was able to eat and tolerating whole foods. He has pain during shift to [facility] and intermittent back pain that is stabbing/throbbing in nature. Helen is helping with his pain. Pt reports he had a bowel movement today. 5250 upheld today on am shift. No seizures noted. Pt reported anxiety at time of Helen administration. First Aid Instructor educated patient on opiate-benzodiazepine respiratory depression. Pt was understanding of education. Pt Lipase levels are trending down. BGM 108 2100hrs. Pt has no other complaints. Pt fluid intake is 800ml-1200ml per day. SI still present. Plan: Cont. to require a safe and structured environment for further stabilization. Due to current symptoms, and stating he is not ready, if discharged at this time he could be a risk for safety and re-hospitalization. Addendum: 04/03/23 at 0538 by Stoney Ring LVN, LVN Pt received additional Helen 5-325mg dose 0443 hours for RUQ pain.
[2023-04-03] MEDS: HYDROcodone/acetaminophen 5mg/325mg tablet PO PRN ×3 (04:53→16:56)
[2023-04-03 07:00] VITALS: RESP 19; O2SAT 97
[2023-04-03 08:00] VITALS: BP 139/94; PULSE 86; RESP 16; TEMP 98; O2SAT 98
[2023-04-03] MEDS ORDERED: folic acid 1mg tablet PO SCH (08:00)
[2023-04-03] MEDS ORDERED: thiamine 100mg tablet PO SCH (08:00)
[2023-04-03] MEDS: tamsulosin 0.4mg capsule PO SCH (08:06)
[2023-04-03] MEDS: pantoprazole 40mg Tablet.DR PO SCH (08:06)
[2023-04-03] MEDS: folic acid 1mg tablet PO SCH (08:07)
[2023-04-03] MEDS: thiamine 100mg tablet PO SCH (08:07)
[2023-04-03] MEDS: multivitamins, therapeutics tablet PO SCH (08:07)
[2023-04-03] MEDS: amLODIPine 5mg tablet PO SCH (08:08)
[2023-04-03] MEDS: nicotine 21mg patch - 24 hr TD SCH (08:08)
[2023-04-03] MEDS: cloNIDine 0.1 mg tablet PO SCH ×3 (08:08→19:59)
[2023-04-03] MEDS: clonazePAM 1mg tablet PO PRN ×3 (08:26→20:20)
[2023-04-03 09:45] LABS: ANION GAP 7 (8-16); CHLORIDE 103 MMOL/L (99-107); POTASSIUM 4.5 MMOL/L (3.5-5.1); SODIUM 136 MMOL/L (135-145); TOTAL CARBON DIOXIDE 25.6 MMOL/L (24-32)
[2023-04-03 09:49] LABS: ALANINE AMINOTRANSFERASE 32 U/L (12-78); ALBUMIN 3.7 G/DL (3.4-5.0); ALBUMIN/GLOBULIN RATIO 1.1 (1.1-1.5); ALKALINE PHOSPHATASE 69 IU/L (46-116); ASPARTATE AMINO TRANSFERASE 19 U/L (10-37); BILIRUBIN,TOTAL 0.3 MG/DL (0.1-1.0); BLOOD UREA NITROGEN 16 MG/DL (7-18); C-REACTIVE PROTEIN 0.18 MG/DL (0.0-0.5); CALCIUM 9.3 MG/DL (8.5-10.1); GLUCOSE 106 MG/DL (70-104); LIPASE 123 U/L (16-77); TOTAL PROTEIN 7.2 G/DL (6.4-8.2); eCRCL 117 ML/MIN; eGFR 85 ML/MIN
[2023-04-03] MEDS: asenapine 5mg TAB.SUBL SL SCH ×3 (11:48→21:00)
--- NOTE | 2023-04-03 17:28 | NUR ---
Nursing Progress Note: Haresh Problem: Pt is on 5150 for DTS D/T reporting that he is currently having suicidal thoughts and plans to overdose on street drugs or medication following recent relapse. Pt was residing at the [facility] until relapse. Pt reports drinking 1 pint of 100 proof alcohol X 3 days. Pt's tox screen was + for methamphetamines. Pt has acute mod-severe pancreatitis. Pt has a Hx of alcohol withdrawal seizures. Interventions: Maintained a safe and structured environment, ensured contract for safety, administered meds as prescribed, provided clear and simple instructions, attempted to orient to reality, and maintained Q 15min safety checks. Response: : Pt. received asleep and awoke to take his medications without hesitation. Pt. c/o 7/10 RUQ and RUB pain; PRN Tylenol administered as the Shell he asked for had been administered 3 hrs prior. Pt. then c/o anxiety and requested Clonazepam; PRN administered. Pt. ate breakfast and returned to sleep waking later to shower. Pt. requested PRN Shell for 7/10 pain when the medication came time for availability. BS have remained WNL for the past 4 days; hospitalist was notified and clarification requested for continuance. Pt. spent most of the shift napping and participating in snacks and meals. Fluids were encouraged as his free water intake has been deficient. Pt. requested PRN for extreme anxiety and was given a 2nd dose of PRN Clonazepam with good results. At 1700 pt. again c/o of RUQ pain requesting PRN Shell; medication available and given with good results. Spoke to hospitalist and she is aware of pt. chronic pain. Plan: Provide a safe and structured environment for further stabilization.
--- NOTE | 2023-04-03 17:53 | NUR ---
SPORTS ATHLETIC TRAINER documentation: I have reviewed all interventions and assessments performed and documented by ONEYDA Prajapati.
[2023-04-03 19:00] VITALS: RESP 18; O2SAT 98
[2023-04-03 19:36] VITALS: BP 128/92; PULSE 79; RESP 18; TEMP 98.4; O2SAT 98
[2023-04-03] MEDS: traZODone 50mg tablet PO SCH ×2 (19:56→21:00)
[2023-04-04] MEDS: HYDROcodone/acetaminophen 5mg/325mg tablet PO PRN ×4 (01:34→20:45)
--- NOTE | 2023-04-04 02:46 | NUR ---
Nursing Progress Note: Problem: Patient admitted to [facility] at this time. Noted to be well-groomed, wearing clean green scrub clothes. His father dropped him off to the ER. Upon admission to ER patient reports his father thinks he is "crazy" and that his brother has been agitating him. Has history of schizophrenia and takes Depakote and olanzapine as well as history of mental health holds and 5250. Patient refers to [facility] as home. Per old records, patient has been seen in this ED several times for suicidal ideation and psychosis. Per 5150, He has not slept in 5 days. 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 Pleasant, calm and cooperative. Medical history of hypertension. Interventions: Patient continues to be cooperative with administration of medication. Patient continues to be observed for triggers and monitor patient behavior. Staff will reinforce reality. Response: This nurse resumed care of patient at 1830. Patient was seen wandering halls and socializing with staff and peers. During 1:1, patient was asked to return to room to have a talk with this nurse and patient was more than willing. 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 Patient denied having any symptoms including pain. Patient compliments the food, staff, and rooms by calling it home. Patient requested shower, shower was received. Patient has history of hypertension, Blood pressure tonight was 137/97. Patient LBM was 10/10. Patient currently in room with eyes closed. 0145- Patient yelling out from room and down hallway. Patient told multiple times to lower voice, peers are asleep. Patient continued to come out of room being loud making odd statements. Knocking on peers room doors causing them to wake up. Plan: patient goal is to return to baseline. Patient will continue to take medications as prescribed. Addendum: 04/04/23 at 0247 melecio Reddy LVN wrong patient
--- NOTE | 2023-04-04 02:46 | NUR ---
Nursing Progress Note: Problem: Pt is on 5150 for DTS D/T reporting that he is currently having suicidal thoughts and plans to overdose on street drugs or medication following recent relapse. Pt was residing at the [facility] until relapse. Pt reports drinking 1 pint of 100 proof alcohol X 3 days. Pt's tox screen was + for methamphetamines. Pt has acute mod-severe pancreatitis. Pt has a Hx of alcohol withdrawal seizures. Interventions: Maintained a safe and structured environment, ensured contract for safety, administered meds as prescribed, provided clear and simple instructions, attempted to orient to reality, and maintained Q 15min safety checks. Response: This nurse resumed care for patient at 1830. Patient was seen watching television in common room with peers. Patient remained in common room until HS snack time. Patient Okayed to receive medications while watching TV, patient denied the need for privacy while 1:1. Patient consumed snack and returned to room for the night. During 1:1, patient denied all symptoms but pain. Patient requested [place] for pain and Klonopin for anxiety. PRN Klonopin was administered, [place] was not due at the moment. Patient blood sugar check was reassuring being at 106. Last bowel movement 04/02. Patient well-mannered and cooperative this evening. Patient currently in bed with eyes closed. 0134- patient approached nurse station requesting PRN [place] for a pain on a scale from 1-10 sitting at a 7. Plan: Provide a safe and structured environment for further stabilization.
[2023-04-04 07:30] VITALS: RESP 16; O2SAT 98
[2023-04-04 08:00] VITALS: BP 135/89; PULSE 87; RESP 16; TEMP 97.7; O2SAT 98
[2023-04-04] MEDS: pantoprazole 40mg Tablet.DR PO SCH (08:14)
[2023-04-04] MEDS: folic acid 1mg tablet PO SCH (08:14)
[2023-04-04] MEDS: amLODIPine 5mg tablet PO SCH (08:14)
[2023-04-04] MEDS: tamsulosin 0.4mg capsule PO SCH (08:14)
[2023-04-04] MEDS: cloNIDine 0.1 mg tablet PO SCH ×3 (08:14→20:14)
[2023-04-04] MEDS: clonazePAM 1mg tablet PO PRN ×2 (08:15→13:29)
[2023-04-04] MEDS: asenapine 5mg TAB.SUBL SL SCH ×3 (08:15→20:14)
[2023-04-04] MEDS: multivitamins, therapeutics tablet PO SCH (08:15)
[2023-04-04] MEDS: nicotine 21mg patch - 24 hr TD SCH (08:19)
[2023-04-04] MEDS: thiamine 100mg tablet PO SCH (08:22)
[2023-04-04] MEDS ORDERED: TESTOSTERONE CYPIONATE 200 MG/ML VIAL IM ONE (14:35)
--- NOTE | 2023-04-04 17:37 | NUR ---
Nursing Progress Note: Problem: Pt is on 5150 for DTS D/T reporting that he is currently having suicidal thoughts and plans to overdose on street drugs or medication following recent relapse. Pt was residing at the [facility] until relapse. Pt reports drinking 1 pint of 100 proof alcohol X 3 days. Pt's tox screen was + for methamphetamines. Pt has acute mod-severe pancreatitis. Pt has a Hx of alcohol withdrawal seizures. Interventions: Maintained a safe and structured environment, ensured contract for safety, administered meds as prescribed, provided clear and simple instructions, attempted to orient to reality, and maintained Q 15min safety checks. Response: RN received pt. asleep in bed at start of shift. Pt. awoke for breakfast and took all medication. Pt. ate all his meals in the community room. Pt. isolated to his room most of the day and slept. In the afternoon pt. observed watching TV in the community room. Pt. received his weekly Testosterone injection. Pt. received Klonopin 1mg po x2. Pt. received [place] 5/325 x2 for 7/10 abdominal pain. Plan: Provide a safe and structured environment for further stabilization.
[2023-04-04 20:00] VITALS: BP 144/101; PULSE 83; RESP 16; TEMP 98.6; O2SAT 16
[2023-04-04] MEDS: traZODone 50mg tablet PO SCH ×2 (20:14→20:45)
--- NOTE | 2023-04-04 23:25 | NUR ---
Nursing Progress Note: Problem: Pt is on 5150 for DTS D/T reporting that he is currently having suicidal thoughts and plans to overdose on street drugs or medication following recent relapse. Pt was residing at the [facility] until relapse. Pt reports drinking 1 pint of 100 proof alcohol X 3 days. Pt's tox screen was + for methamphetamines. Pt has acute mod-severe pancreatitis. Pt has a Hx of alcohol withdrawal seizures. Interventions: The patient is on q 15 minute safety checks. One to one with the patient to assess severity of depressive symptoms and self harm risk. Reminded client of medication changes. Patient given PRN Trazodone and [place] per his request. Assessed for medication side effects. Response: The patient was up on the unit and showered. He was out in the patient dining room. He was pleasant and friendly when approached for the evening assessment. His affect was brighter. He stated he was feeling better than on admit. He reports that his energy level was fair. He reports that his ability to concentrate was fairly good. He denied that he had any suicidal thoughts and he is making plans for his future. He stated that after he is discharged he would like to go to rehab but if he is unable to get into a program he can ultimately stay on his dad's property in [place]. He denies cravings for substances. He continues to complain of upper abd pain and requested PRN norco. He rated his anxiety as 6/10. He denied psychotic symptoms. Psychotic symptoms are denied. Plan:Continue plan of care.
[2023-04-05] MEDS: pantoprazole 40mg Tablet.DR PO SCH (06:39)
[2023-04-05] MEDS: amLODIPine 5mg tablet PO SCH (07:34)
[2023-04-05] MEDS: cloNIDine 0.1 mg tablet PO SCH ×3 (07:34→21:00)
[2023-04-05] MEDS: nicotine 21mg patch - 24 hr TD SCH (07:35)
[2023-04-05] MEDS: asenapine 5mg TAB.SUBL SL SCH ×3 (07:35→21:05)
[2023-04-05] MEDS: tamsulosin 0.4mg capsule PO SCH (07:35)
[2023-04-05] MEDS: thiamine 100mg tablet PO SCH (07:38)
[2023-04-05] MEDS: folic acid 1mg tablet PO SCH (07:38)
[2023-04-05] MEDS: multivitamins, therapeutics tablet PO SCH (07:38)
[2023-04-05 07:39] VITALS: BP 133/94; PULSE 82; RESP 16; TEMP 98.1; O2SAT 99
[2023-04-05] MEDS: clonazePAM 1mg tablet PO PRN ×2 (07:50→20:59)
[2023-04-05] MEDS: HYDROcodone/acetaminophen 5mg/325mg tablet PO PRN ×2 (07:50→14:29)
--- NOTE | 2023-04-05 09:11 | NUR ---
F/u 04/05: Pt PO 100% regular diet w/ snacks meeting estimated needs remains on routine thiamine, folic acid, MVI for etoh hx per EMR. LBM 04/04 per EMR. No nutrition interventions at this time. Will continue to follow. Rec: 1. continue regular diet 2. routine thiamine, folic acid, MVI for etoh hx 3. bowel care per rx 4. weekly wt Addendum: 04/05/23 at [address] Amended: Links added.
--- NOTE | 2023-04-05 12:05 | NUR ---
CASE MANAGEMENT Pt is interested in going to a rehab, specifically [facility] in [place]. This Exercise Teacher gave him the phone number for Radhika so he can get that process started. In the interim while waiting for a bed he is happy to stay with his dad Nas. This Exercise Teacher spoke with Pt's father (Antonio [phone]) today who reported that he is fine with his son coming back to stay with him when he has been medically cleared to leave [facility]. He is willing to pick him up as long as he has a few hours notice as well. KATHI KernW
--- NOTE | 2023-04-05 15:58 | NUR ---
Nursing Progress Note: Haresh Problem: Admit Note: Pt is on 5150 for DTS D/T reporting that he is currently having suicidal thoughts and plans to overdose on street drugs or medication following recent relapse. Pt was residing at the [facility] until relapse. Pt reports drinking 1 pint of 100 proof alcohol X 3 days. Pt's tox screen was + for methamphetamines. Pt has acute mod-severe pancreatitis. Pt has a Hx of alcohol withdrawal seizures. Interventions: Maintained a safe and structured environment, ensured contract for safety, administered meds as prescribed, provided clear and simple instructions, and maintained Q 15min safety checks. Response: Pt. was up for vitals and breakfast. Compliant with meds. Has no complaints. Asked him how he was feeling, if he is experiencing any SI/HI, A/V/H, all of which he denies. Currently denies any cravings for alcohol. Asked him about his discharge plan he stated, I would like to go into a rehab after I get out of here. Asked him where he plans to go from here prior to the rehab, he said, I can go to my dads, stay in town for a day to get my belongings from the last program then back to [place] until I get into a program. Asked if it has been confirmed that he can go to his dads, he said, No not by any one here but I talk to him and we are all good, but it dont matter I can stay in town, I do have an income. Explained that it would be good to discharge to a place with good support, he stated, Well I am not so sure that my father is good support. He doesnt understand addiction, thinks I should just be able to quit and thinks I should just smoke pot instead. Doesnt understand what lead up to the addiction. Asked him what had led to the addiction he said, I describe my life as having all the blue prints to what no to do to your child and what no to do when raising a child. My life was not easy at all. Asked if he would feel safe there, he said, Ya, we are all good now. -Appearance: casually groomed -Eye contact: good -Mood: calm -Affect: congruent with mood -Speech: WNL -Thought Process: intact -Thought content: goal oriented to get into a rehab/recovery program -A/V/H: denies -SI/HI: denies -ADLs: independent -Insight: fair -Judgement: poor Plan: Cont. to require a safe and structured environment for further stabilization. His discharge plan has not yet been verified as viable, and without a viable discharged plan, due to past history and current hospitalization, if discharged at this time he could be a high risk for safety and re-hospitalization. Addendum: 04/05/23 at 1734 by Roney Jacobo) CRISTINO ONEYDA documentation: I have reviewed and agree with all interventions, assessments performed and documented by Ashley CALL.
[2023-04-05 19:30] VITALS: BP 144/98; PULSE 78; RESP 14; TEMP 97.7; O2SAT 98
[2023-04-05] MEDS: traZODone 50mg tablet PO SCH (21:00)
--- NOTE | 2023-04-06 05:26 | NUR ---
Nursing Progress Note: Problem: Admit Note: Pt is on 5150 for DTS D/T reporting that he is currently having suicidal thoughts and plans to overdose on street drugs or medication following recent relapse. Pt was residing at the [facility] until relapse. Pt reports drinking 1 pint of 100 proof alcohol X 3 days. Pt's tox screen was + for methamphetamines. Pt has acute mod-severe pancreatitis. Pt has a Hx of alcohol withdrawal seizures. Interventions: Maintained a safe and structured environment, ensured contract for safety, administered meds as prescribed, provided clear and simple instructions, and maintained Q 15min safety checks. Response: Pt socialized with peers and watching TV this evening in the day room and had an overall pleasant demeanor. Pt seems to be in much better spirits than he was last week when he was in much visible pain and stayed in his room. Pt was compliant with all meds and cooperative with assessment. Pt denies AVH/SI/HI. Pt slept throughout night with no complaints. Plan: Cont. to require a safe and structured environment for further stabilization. His discharge plan has not yet been verified as viable, and without a viable discharged plan, due to past history and current hospitalization, if discharged at this time he could be a high risk for safety and re-hospitalization.
[2023-04-06 07:00] VITALS: RESP 16; O2SAT 98
[2023-04-06] MEDS: pantoprazole 40mg Tablet.DR PO SCH (08:18)
[2023-04-06] MEDS: cloNIDine 0.1 mg tablet PO SCH ×3 (08:19→20:48)
[2023-04-06] MEDS: nicotine 21mg patch - 24 hr TD SCH (08:19)
[2023-04-06] MEDS: folic acid 1mg tablet PO SCH (08:19)
[2023-04-06] MEDS: tamsulosin 0.4mg capsule PO SCH (08:19)
[2023-04-06] MEDS: thiamine 100mg tablet PO SCH (08:20)
[2023-04-06] MEDS: multivitamins, therapeutics tablet PO SCH (08:20)
[2023-04-06] MEDS: amLODIPine 5mg tablet PO SCH (08:20)
[2023-04-06] MEDS: HYDROcodone/acetaminophen 5mg/325mg tablet PO PRN ×2 (08:21→15:20)
[2023-04-06] MEDS: asenapine 5mg TAB.SUBL SL SCH ×3 (08:30→20:49)
[2023-04-06] MEDS: clonazePAM 1mg tablet PO PRN ×2 (08:30→15:19)
[2023-04-06 08:33] VITALS: BP 142/102; PULSE 74; RESP 16; TEMP 98; O2SAT 98
[2023-04-06 09:00] VITALS: BP 141/97
[2023-04-06 13:53] VITALS: BP 121/82; PULSE 74
--- NOTE | 2023-04-06 17:10 | NUR ---
Nursing Progress Note: Problem : Pt is on 5150 for DTS due to reporting that he is currently having suicidal thoughts and plans to overdose on street drugs or medication following recent relapse. Pt was residing at the [facility] until relapse. Pt reports drinking 1 pint of 100 proof alcohol X 3 days. Pt's tox screen was + for methamphetamines. Pt has acute mod-severe pancreatitis. Pt has a Hx of alcohol withdrawal seizures. Interventions : Introduced self and established rapport, maintained a safe and supportive environment, ensured contract for safety, provided clear and simple instructions, encouraged participation on the unit, and maintained Q 15min safety checks. Response: Received pt. sleeping in bed at the beginning of the shift, he awoke and attended breakfast in the Group Room. After breakfast, pt. retreated back to bed and remained withdrawn here throughout much of the shift. 1:1 was completed at bedside, pt. presents as cooperative, guarded, and withdrawn with a blunted affect. He requested PRN [place] for intermittent abdominal pain and Klonopin for anxiety, and these garcia administered with effectiveness. Pt. denies any S/I, H/I, A/V/BOGGS, and no delusional statements were made. He does endorse some depression and anxiety, however upon further questioning regarding these would not elaborate. Pt. stated in a dismissive manner, "Just a lot of things." Pt. remained withdrawn from others throughout much of the shift, getting up to attend meals and snacks. In the afternoon, he again requested Greig and Klonopin and these were administered with effectiveness. Plan : Pt. continues to require medication adjustments and a safe and supportive environment.
[2023-04-06 19:30] VITALS: BP 124/90; PULSE 72; RESP 16; TEMP 97.2; O2SAT 100
[2023-04-06] MEDS: traZODone 50mg tablet PO SCH ×2 (20:49→21:54)
--- NOTE | 2023-04-07 06:06 | NUR ---
Nursing Progress Note: Problem: Admit Note: Pt is on 5150 for DTS D/T reporting that he is currently having suicidal thoughts and plans to overdose on street drugs or medication following recent relapse. Pt was residing at the [facility] until relapse. Pt reports drinking 1 pint of 100 proof alcohol X 3 days. Pt's tox screen was + for methamphetamines. Pt has acute mod-severe pancreatitis. Pt has a Hx of alcohol withdrawal seizures. Interventions: Maintained a safe and structured environment, ensured contract for safety, administered meds as prescribed, provided clear and simple instructions, and maintained Q 15min safety checks. Response: Pt was in day room at beginning of shift watching TV with peers. Pt was complaint with all meds and assessment and denies AVH/HI/SI. Pt received repeat trazadone for sleep and stated that the MD had told him today that he was going to up his dose of trazadone. Plan: Cont. to require a safe and structured environment for further stabilization. His discharge plan has not yet been verified as viable, and without a viable discharged plan, due to past history and current hospitalization, if discharged at this time he could be a high risk for safety and re-hospitalization.
[2023-04-07 07:00] VITALS: RESP 14; O2SAT 97
[2023-04-07 08:00] VITALS: BP 122/83; PULSE 91; RESP 14; TEMP 97.5; O2SAT 97
[2023-04-07] MEDS: pantoprazole 40mg Tablet.DR PO SCH (08:45)
[2023-04-07] MEDS: cloNIDine 0.1 mg tablet PO SCH ×3 (08:45→20:38)
[2023-04-07] MEDS: tamsulosin 0.4mg capsule PO SCH (08:46)
[2023-04-07] MEDS: multivitamins, therapeutics tablet PO SCH (08:46)
[2023-04-07] MEDS: thiamine 100mg tablet PO SCH (08:46)
[2023-04-07] MEDS: folic acid 1mg tablet PO SCH (08:46)
[2023-04-07] MEDS: amLODIPine 5mg tablet PO SCH (08:46)
[2023-04-07] MEDS: clonazePAM 1mg tablet PO PRN ×2 (08:47→15:53)
[2023-04-07] MEDS: asenapine 5mg TAB.SUBL SL SCH ×3 (08:47→20:38)
[2023-04-07] MEDS: HYDROcodone/acetaminophen 5mg/325mg tablet PO PRN ×2 (08:48→15:52)
[2023-04-07] MEDS: nicotine 21mg patch - 24 hr TD SCH (08:49)
[2023-04-07] MEDS ORDERED: vortioxetine HBr tablet 10 MG TABLET PO ONE (09:25)
[2023-04-07] MEDS ORDERED: vortioxetine HBr tablet 5 MG TABLET PO ONE (09:55)
[2023-04-07 13:25] VITALS: BP 124/88; PULSE 73
--- NOTE | 2023-04-07 17:13 | NUR ---
Nursing Progress Note: Problem : Pt is on 5150 for DTS due to reporting that he is currently having suicidal thoughts and plans to overdose on street drugs or medication following recent relapse. Pt was residing at the [facility] until relapse. Pt reports drinking 1 pint of 100 proof alcohol X 3 days. Pt's tox screen was + for methamphetamines. Pt has acute mod-severe pancreatitis. Pt has a Hx of alcohol withdrawal seizures. Interventions : Maintained a safe and supportive environment, ensured contract for safety, provided clear and simple instructions, encouraged participation on the unit, and maintained Q 15min safety checks. Response: Received pt. sleeping in bed at the beginning of the shift, he awoke and attended breakfast in the Group Room. After breakfast, pt. retreated back to bed as is his routine. Pt. again requested PRN [place] for intermittent abdominal pain and PRN Klonopin for anxiety and these were administered with effectiveness. 1:1 was completed at bedside, pt. continues to present with a blunted affect and responds minimally to direct questions only. He denies S/I, but continues to endorse some depression and anxiety, but again wll not elaborate on why he is feeling this way. Pt. reports having some nightmares last night and was found to have a Nicotine Patch on which was not removed at , an intervention to remind staff was placed. Pt. was observed to be more present on the unit this shift watching movies with others in the Group Room, however he remains withdrawn. Pt. again requested PRN [place] for intermittent abdominal pain and PRN Klonopin for anxiety in the afternoon and these were administered with effectiveness. Plan : Pt. continues to require medication adjustments and a safe and supportive environment.
[2023-04-07 19:00] VITALS: BP 133/93; PULSE 80; RESP 16; TEMP 98.1; O2SAT 100
[2023-04-07] MEDS: traZODone 50mg tablet PO PRN (21:34)
--- NOTE | 2023-04-08 05:53 | NUR ---
Nursing Progress Note: Problem : Pt is on 5150 for DTS due to reporting that he is currently having suicidal thoughts and plans to overdose on street drugs or medication following recent relapse. Pt was residing at the [facility] until relapse. Pt reports drinking 1 pint of 100 proof alcohol X 3 days. Pt's tox screen was + for methamphetamines. Pt has acute mod-severe pancreatitis. Pt has a Hx of alcohol withdrawal seizures. Interventions : Maintained a safe and supportive environment, ensured contract for safety, provided clear and simple instructions, encouraged participation on the unit, and maintained Q 15min safety checks. Response: Received pt laying in bed at the beginning of shift, and intermittently visiting the group room prior to evening medication pass. Pt was cooperative and compliant. Pt expressed prior difficulty falling asleep and discussion with Dr. Gonzales r/t obtaining adjustment of PRN Trazodone order for sleep. 200mg Trazodone given. Pt currently denies S/I, but still endorses some depression and minimal anxiety but seems to be of good cheer. Pt slept throughout the night. No other complaints or disturbances noted. Plan : Pt. continues to require medication adjustments and a safe and supportive environment.
[2023-04-08 07:00] VITALS: RESP 16; O2SAT 100
[2023-04-08 08:00] VITALS: BP 138/98; PULSE 66; RESP 16; TEMP 97.9; O2SAT 100
[2023-04-08] MEDS ORDERED: vortioxetine HBr tablet 5 MG TABLET PO SCH (08:00)
[2023-04-08] MEDS: asenapine 5mg TAB.SUBL SL SCH ×2 (08:10→12:21)
[2023-04-08] MEDS: amLODIPine 5mg tablet PO SCH (08:11)
[2023-04-08] MEDS: folic acid 1mg tablet PO SCH (08:11)
[2023-04-08] MEDS: multivitamins, therapeutics tablet PO SCH (08:11)
[2023-04-08] MEDS: thiamine 100mg tablet PO SCH (08:11)
[2023-04-08] MEDS: tamsulosin 0.4mg capsule PO SCH (08:11)
[2023-04-08] MEDS: cloNIDine 0.1 mg tablet PO SCH ×3 (08:12→20:38)
[2023-04-08] MEDS: pantoprazole 40mg Tablet.DR PO SCH (08:12)
[2023-04-08] MEDS: nicotine 21mg patch - 24 hr TD SCH (08:12)
[2023-04-08] MEDS: HYDROcodone/acetaminophen 5mg/325mg tablet PO PRN ×2 (08:21→15:39)
[2023-04-08] MEDS: clonazePAM 1mg tablet PO PRN ×2 (08:21→15:38)
[2023-04-08 12:19] VITALS: BP 130/85; PULSE 79; O2SAT 97
--- NOTE | 2023-04-08 15:57 | NUR ---
Nursing Progress Note: Haresh Problem : Pt is on 5150 for DTS due to reporting that he is currently having suicidal thoughts and plans to overdose on street drugs or medication following recent relapse. Pt was residing at the [facility] until relapse. Pt reports drinking 1 pint of 100 proof alcohol X 3 days. Pt's tox screen was + for methamphetamines. Pt has acute mod-severe pancreatitis. Pt has a Hx of alcohol withdrawal seizures. Interventions: Maintained a safe and supportive environment, ensured contract for safety, provided clear and simple instructions, encouraged participation on the unit, and maintained Q 15min safety checks. Response: Received pt asleep. Pt woke for breakfast and ate in the community room. Pt took medications cooperatively. Requested PRNs [place] and Klonopin for pain and anxiety, given with good effect. Pt went back to sleep after breakfast. Performed 1:1 bedside. Pt denies SI/HI and AVH. Pt observed watching TV in the community room, laughing and smiling with peers. Pt shaved today with tech standby. Pt interacting with peers and kind with this RN. No s/s of distress. Pt ate lunch in the community room. Pt states that he has a history of using alcohol to solve problems and he is aware of this issue and has a plan to stay away from alcohol. He states that hes aware that recovery is a long process. Plan : Pt. continues to require medication adjustments and a safe and supportive environment.
[2023-04-08] MEDS ORDERED: vortioxetine HBr tablet 5 MG TABLET PO ONE (16:45)
[2023-04-08 19:00] VITALS: RESP 16; O2SAT 100
[2023-04-08 20:00] VITALS: BP 121/75; PULSE 71; RESP 16; TEMP 98.2; O2SAT 100
[2023-04-08] MEDS: traZODone 50mg tablet PO PRN (20:39)
[2023-04-08] MEDS: traZODone 50mg tablet PO SCH (20:44)
--- NOTE | 2023-04-09 02:54 | NUR ---
Nursing Progress Note: Problem: Pt is on 5150 for DTS due to reporting that he is currently having suicidal thoughts and plans to overdose on street drugs or medication following recent relapse. Pt was residing at the [facility] until relapse. Pt reports drinking 1 pint of 100 proof alcohol X 3 days. Pt's tox screen was + for methamphetamines. Pt has acute mod-severe pancreatitis. Pt has a Hx of alcohol withdrawal seizures. Interventions: Maintained a safe and supportive environment, administer medications as prescribed, ensured contract for safety, provided clear and simple instructions, encouraged participation on the unit, and maintained Q 15min safety checks. Response: Received pt. in his room where he was talking to his father. Pt is more visible on unit although he has minimal interaction with peers. Pt able to make needs known. Pt in a good mood. Pt denies SI/HI/AVH. Pt does endorse depressive feeling and some anxiety regarding discharge. Pt is medication compliant with no PRNs given. Pts discharge plan is to go to his fathers place for a while and then to [place] for drug rehab. Continue to monitor for safety. Plan: Pt. continues to require medication adjustments and a safe and supportive environment.
[2023-04-09 07:00] VITALS: RESP 18; O2SAT 99
[2023-04-09] MEDS: clonazePAM 1mg tablet PO PRN ×2 (07:49→14:58)
[2023-04-09] MEDS: cloNIDine 0.1 mg tablet PO SCH ×2 (07:50→12:35)
[2023-04-09] MEDS: HYDROcodone/acetaminophen 5mg/325mg tablet PO PRN ×2 (07:50→14:58)
[2023-04-09] MEDS: multivitamins, therapeutics tablet PO SCH (07:50)
[2023-04-09] MEDS: tamsulosin 0.4mg capsule PO SCH (07:51)
[2023-04-09] MEDS: thiamine 100mg tablet PO SCH (07:51)
[2023-04-09] MEDS: amLODIPine 5mg tablet PO SCH (07:51)
[2023-04-09] MEDS: pantoprazole 40mg Tablet.DR PO SCH (07:52)
[2023-04-09] MEDS: asenapine 5mg TAB.SUBL SL SCH ×2 (07:52→12:35)
[2023-04-09] MEDS: folic acid 1mg tablet PO SCH (07:52)
[2023-04-09] MEDS: nicotine 21mg patch - 24 hr TD SCH (07:53)
[2023-04-09 08:00] VITALS: BP 137/90; PULSE 90; RESP 18; TEMP 97.1; O2SAT 99
[2023-04-09] MEDS ORDERED: vortioxetine HBr tablet 5 MG TABLET PO SCH (08:00)
[2023-04-09 12:15] VITALS: BP 120/75; PULSE 79; RESP 16; O2SAT 98
[2023-04-09] MEDS ORDERED: FLO0.4C PO (14:54)
[2023-04-09] MEDS ORDERED: thiamine tablet PO (14:54)
[2023-04-09] MEDS ORDERED: MULT-25 PO (14:54)
[2023-04-09] MEDS ORDERED: NICO-687 TD (14:54)
[2023-04-09] MEDS ORDERED: VORT5TAB PO (14:54)
[2023-04-09] MEDS ORDERED: FOLI1TAB27 PO (14:54)
[2023-04-09] MEDS ORDERED: ASEN5TAB7 PO (14:54)
[2023-04-09] MEDS ORDERED: PANT40TA54 PO (14:54)
[2023-04-09] MEDS ORDERED: CLON0.2T PO (14:54)
[2023-04-09] MEDS ORDERED: TRAZ-256 PO (14:54)
[2023-04-09] MEDS ORDERED: AMLO10TA13 PO (14:54)
[2023-04-09 14:58] VITALS: RESP 16
--- NOTE | 2023-04-09 16:30 | NUR ---
Discharge Note: Haresh Pt discharged home, picked up by his father. Pt discharged with all belongings and valuables. RN went over discharge paperwork with patient including fire arms restriction, emergency phone numbers, including 911, and discharge medications along with follow up plan. Patient signed all paperwork. Patient denies SI/HI and AVH. Patient is A&O X4 and in no apparent distress.
== END 2023-04-09 16:40 | disposition home or self-care (01) | DRG 751 ==
LOC: ER 07:20 → UNDOADMIN 16:36 → ADULT MH 16:36 → ED HOLD 16:36
PROVIDERS: ADMIT Psychiatry & Neurology Psychiatry; ATTEND Psychiatry & Neurology Psychiatry
DX: F33.1 Major depressive disorder, recurrent, moderate (principal); K85.20 Alcohol induced acute pancreatitis without necrosis or infection; N17.9 Acute kidney failure, unspecified; R45.851 Suicidal ideations; F13.20 Sedative, hypnotic or anxiolytic dependence, uncomplicated; F10.220 Alcohol dependence with intoxication, uncomplicated; Z20.822 Contact with and (suspected) exposure to COVID-19; K76.9 Liver disease, unspecified; F19.20 Other psychoactive substance dependence, uncomplicated; F17.210 Nicotine dependence, cigarettes, uncomplicated; F41.9 Anxiety disorder, unspecified; Z88.0 Allergy status to penicillin; Z79.899 Other long term (current) drug therapy; Z87.11 Personal history of peptic ulcer disease; Z59.00 Homelessness unspecified
CPT/HCPCS: 36415; 74150; 80053; 80061; 80305; 80320; 81001; 82948; 83036; 83690; 83735; 84100; 84145; 84443; 84484; 85025; 86140; 87081; 87811; 93005; 99285; A6258; C9113; J2060; J2270; J2405; J3411; J3490; J7030; Z7610

== ENCOUNTER 2024-08-04 08:32 | Emergency (ER) | payer BC, MEDICAID ==
[~2024-08-04] VITALS: Ht 182.9 cm; Wt 95.5 kg
[~2024-08-04 08:32] MED LIST changes: +AMLO10TA13 PO; +ASEN5TAB7 PO; -BUPR300T6 PO; -CITA20TA28 PO; -CLON-527 PO; +CLON0.2T PO; +FLO0.4C PO; +FOLI1TAB27 PO; +MULT-25 PO; +NICO-687 TD; +PANT40TA54 PO; +TRAZ-256 PO; +VORT5TAB PO; +thiamine tablet PO
[2024-08-04 14:00] VITALS: BP 105/55; PULSE 88; RESP 16; TEMP 98.5; O2SAT 98
== END 2024-08-04 14:08 | disposition home or self-care (01) ==
LOC: ER 08:33
DX: F19.99 Other psychoactive substance use, unspecified with unspecified psychoactive substance-induced disorder (principal); F41.9 Anxiety disorder, unspecified; F31.9 Bipolar disorder, unspecified; F10.10 Alcohol abuse, uncomplicated; Z88.0 Allergy status to penicillin; Y90.9 Presence of alcohol in blood, level not specified
CPT/HCPCS: 93005; 99285

== ENCOUNTER 2024-08-15 15:14 | Emergency (ER) | payer BC ==
[~2024-08-15] VITALS: Ht 182.9 cm; Wt 84.1 kg
[2024-08-15 15:20] VITALS: BP 105/104; PULSE 109; RESP 18; TEMP 99.1; O2SAT 96
[2024-08-15 16:05] LABS: BILIRUBIN,URINE NEGATIVE (Neg); CLARITY,URINE CLEAR (Clear); COLOR,URINE YELLOW (Yellow); GLUCOSE, URINE NEGATIVE (Neg); KETONES,URINE NEGATIVE (Neg); LEUKOCYTE ESTERASE ,URINE NEGATIVE (Neg); NITRITES, URINE NEGATIVE (Neg); OCCULT BLOOD,URINE NEGATIVE (Neg); PH,URINE 5.5 (4.8-8.0); PROTEIN,URINE NEGATIVE (Neg); UROBILINOGEN,URINE 0.2 E.U/dL (0.2-1.0)
[2024-08-15 16:10] LABS: UA COLLECTION TYPE NON-SPECIFIED
[2024-08-15 16:13] LABS: BASOPHILS # (AUTO) 0.1 X10'3 (0-0.2); BASOPHILS % (AUTO) 0.4 % (0-1); EOSINOPHILS # (AUTO) 0.5 X10'3 (0-0.9); EOSINOPHILS % (AUTO) 3.4 % (0-6); HEMATOCRIT 41.7 % (42.0-52.0); HEMOGLOBIN 13.9 g/dl (14.0-17.9); LYMPHOCYTES # (AUTO) 1.9 X10'3 (1.1-4.8); LYMPHOCYTES % (AUTO) 12.7 % (21-51); MEAN CORPUSCULAR HEMOGLOBIN 31.5 PG (27.0-31.0); MEAN CORPUSCULAR HGB CONC 33.4 g/dL (33.0-36.5); MEAN CORPUSCULAR VOLUME 94.5 FL (78-98); MEAN PLATELET VOLUME 7.1 FL (7.4-10.4); MONOCYTES # (AUTO) 1.1 X10'3 (0-0.9); NEUTROPHILS # (AUTO) 11.5 X10'3 (1.8-7.7); NEUTROPHILS % (AUTO) 76.5 % (42-75); PLATELET COUNT 362 X10'3 (140-440); RED BLOOD COUNT 4.42 X10'6 (4.70-6.10); RED CELL DISTRIBUTION WIDTH 13.7 % (11.5-14.5); WHITE BLOOD COUNT 15.1 X10'3 (4.5-11.0)
[2024-08-15 16:24] LABS: URINE AMPHETAMINE SCREEN NEGATIVE (Neg); URINE BARBITUATE SCREEN NEGATIVE (Neg); URINE BENZODIAZEPINES SCREEN POSITIVE (Neg); URINE CANNABINOID SCREEN NEGATIVE (Neg); URINE COCAINE SCREEN NEGATIVE (Neg); URINE METHADONE SCREEN NEGATIVE (Neg); URINE OPIATE SCREEN NEGATIVE (Neg); URINE PHENCYCLIDINE SCREEN NEGATIVE (Neg)
[2024-08-15 16:35] LABS: ALBUMIN 3.8 G/DL (3.4-5.0); ANION GAP 8 (8-16); BLOOD UREA NITROGEN 25 MG/DL (7-18); BUN/CREATININE RATIO 19.8 (10.0-20.0); CALCIUM 9.5 MG/DL (8.5-10.1); CHLORIDE 110 MMOL/L (99-107); CREATININE 1.26 MG/DL (0.60-1.10); ETHANOL 38 MG/DL (<10); GLUCOSE 96 MG/DL (70-104); POTASSIUM 4.8 MMOL/L (3.5-5.1); SODIUM 141 MMOL/L (135-145); THYROID STIMULATING HORMONE 6.94 ulU/ml (0.34-4.50); eCRCL 89 ML/MIN; eGFR 65 ML/MIN
== END 2024-08-15 17:08 | disposition home or self-care (01) ==
LOC: ER 15:16
DX: F41.9 Anxiety disorder, unspecified (principal); F13.21 Sedative, hypnotic or anxiolytic dependence, in remission; F10.10 Alcohol abuse, uncomplicated; Z88.0 Allergy status to penicillin; Z79.899 Other long term (current) drug therapy; Y90.9 Presence of alcohol in blood, level not specified; F32.A Depression, unspecified; Z20.822 Contact with and (suspected) exposure to COVID-19
CPT/HCPCS: 36415; 80048; 80305; 80320; 81003; 84443; 85025; 87811; 99283

== ENCOUNTER 2024-08-29 12:05 | Emergency (ER) | payer BC, MEDICAID ==
[~2024-08-29] VITALS: Ht 182.9 cm; Wt 77.0 kg
[2024-08-29 12:12] VITALS: TEMP 98.9
[2024-08-29] MEDS: normal saline 1000ML IV soln IVB ONE (12:49)
[2024-08-29 13:21] LABS: BASOPHILS % (AUTO) 0.3 % (0-1); EOSINOPHILS # (AUTO) 0.1 X10'3 (0-0.9); EOSINOPHILS % (AUTO) 0.7 % (0-6); HEMOGLOBIN 14.4 g/dl (14.0-17.9); LYMPHOCYTES # (AUTO) 1.6 X10'3 (1.1-4.8); LYMPHOCYTES % (AUTO) 14.5 % (21-51); MEAN CORPUSCULAR HGB CONC 33.4 g/dL (33.0-36.5); MEAN CORPUSCULAR VOLUME 92.8 FL (78-98); MEAN PLATELET VOLUME 6.7 FL (7.4-10.4); MONOCYTES # (AUTO) 0.7 X10'3 (0-0.9); MONOCYTES % (AUTO) 6.3 % (2-12); NEUTROPHILS # (AUTO) 8.7 X10'3 (1.8-7.7); NEUTROPHILS % (AUTO) 78.2 % (42-75); PLATELET COUNT 360 X10'3 (140-440); RED BLOOD COUNT 4.63 X10'6 (4.70-6.10); RED CELL DISTRIBUTION WIDTH 15.7 % (11.5-14.5); WHITE BLOOD COUNT 11.2 X10'3 (4.5-11.0)
[2024-08-29 13:38] LABS: ALBUMIN 3.4 G/DL (3.4-5.0); ANION GAP 12 (8-16); BLOOD UREA NITROGEN 14 MG/DL (7-18); BUN/CREATININE RATIO 17.9 (10.0-20.0); CALCIUM 9.1 MG/DL (8.5-10.1); CHLORIDE 104 MMOL/L (99-107); CREATININE 0.78 MG/DL (0.60-1.10); ETHANOL 196 MG/DL (<10); GLUCOSE 89 MG/DL (70-104); LIPASE 32 U/L (16-77); MAGNESIUM 2.2 MG/DL (1.5-2.4); POTASSIUM 3.4 MMOL/L (3.5-5.1); SODIUM 142 MMOL/L (135-145); TOTAL CARBON DIOXIDE 26.2 MMOL/L (24-32); eCRCL 143 ML/MIN; eGFR > 90 ML/MIN
[2024-08-29 15:43] VITALS: BP 156/108; PULSE 113; RESP 18; O2SAT 96
[2024-08-29] MEDS ORDERED: CHLO25CA10 PO (16:09)
[2024-08-29] MEDS: CefTRIAXone/D5W-Rocephin 1gm 50 ML IV ONE (16:25)
[2024-08-29] MEDS ORDERED: NICO-630 TOP (16:34)
[2024-08-29] MEDS ORDERED: lithium carbonate 150mg capsule PO SCH (16:35)
[2024-08-29] MEDS: normal saline 1000ml 1,000 ML IV ONE (17:05)
[2024-08-29] MEDS: chlordiazePOXIDE 25mg capsule PO ONE (17:06)
[2024-08-29] MEDS: nicotine 7mg patch - 24hr TD ONE (17:06)
[2024-08-29] MEDS: lithium carbonate 150mg capsule PO ONE (17:07)
== END 2024-08-29 17:56 | disposition home or self-care (01) ==
LOC: ER 12:06
DX: F10.129 Alcohol abuse with intoxication, unspecified (principal); R07.81 Pleurodynia; F41.9 Anxiety disorder, unspecified; F32.A Depression, unspecified; F17.210 Nicotine dependence, cigarettes, uncomplicated; Z88.0 Allergy status to penicillin; Z79.899 Other long term (current) drug therapy; Y90.9 Presence of alcohol in blood, level not specified
CPT/HCPCS: 36415; 71045; 80048; 80178; 80320; 83690; 83735; 85025; 93005; 96361; 96365; 99285; J0696; J7030